=== PATIENT | male | born 1970 | race Caucasian/White ===

== ENCOUNTER 2020-03-06 16:31 | Emergency (ER) | payer OTHER, SELFPAY ==
--- NOTE | ~2020-03-06 | CT_ITS ---
EXAMINATION: CTA brain carotid DATE: 03/06/2020 17:47 INDICATION: Gait instability. TECHNIQUE: Computed tomographic angiography (CTA) of the head was performed without and with 100 mL O mnipaque-350 intravenous contrast. CTA of the neck was performed with intravenous contrast. Automated exposure control and iterative reconstruction technique were employed. The dose-length product was 1 648.75 mGy-cm. Maximum intensity projection and volume rendered 3D-reconstructions were created by anju jansen technologist on a separate workstation. COMPARISON: None. FINDINGS: HEAD CTA: There is no intracranial hemorrhage, acute infarction, or abnormal intracranial mass lesion . The ventricles are normal in size. The orbits are normal. There is mucosal thickening in the parana ale sinuses. The mastoid air cells are normal. The vertebral arteries are codominant. There is no sig nificant stenosis of basilar artery or the posterior cerebral arteries. There is no significant steno sis of the intracranial internal carotid arteries or anterior or middle cerebral arteries. Anterior c ommunicating artery and the posterior communicating arteries are normal. There is no aneurysm. NECK CTA: There are no pathologically enlarged lymph nodes. There is no significant stenosis of the v ertebral arteries. There is mild plaque in the proximal internal carotid arteries. There is 0% steno sis of the proximal right internal carotid artery relative to normal distal artery lumen diameter (NA SCET criteria). There is 0% stenosis of the proximal left internal carotid artery relative to normal distal artery lumen diameter. There is severe spondylosis at C5-C6. IMPRESSION: 1. Normal brain. No aneurysm or significant intracranial arterial stenosis. 2. 0% stenosis of the proximal internal carotid arteries relative to normal distal artery lumen diame ters (NASCET criteria). Reviewed, dictated and finalized at location A. IMPRESSION: 1. Normal brain. No aneurysm or significant intracranial arterial stenosis. 2. 0% stenosis of the proximal internal carotid arteries relative to normal dis jorge artery lumen diameters (NASCET criteria).
[2020-03-06 16:35] VITALS: BP 153/85; PULSE 76; RESP 18; TEMP 36.6; O2SAT 100
[2020-03-06 16:43] VITALS: PULSE 83
--- NOTE | 2020-03-06 16:47 | ECG_ITS ---
Measurements Intervals [place] Rate: 62 P: 65 HI: 137 QRS: 49 QRSD: 94 T: 40 QT: 362 QTc: 370 Interpretive Statements SINUS RHYTHM BASELINE ARTIFACT- I, II, III, AVR, AVL, AVF NORMAL ECG Electronically Signed On 03-06-2020 17:17:02 CDT by Marcel Hunter D.O.
--- NOTE | 2020-03-06 16:48 | ED.GENADULT ---
HPI - General Adult General Chief complaint: Unspecified Stated complaint: unsteady on feet Time Seen by Provider: 03/06/20 16:39 History of Present Illness HPI narrative: Patient is a 49 y/o male complaining of mild unsteadiness, troubling finishing sentences for about 1 week. He states that he is able to move all 4 extremities and able to walk. There is no known alleviating or exacerbating factor. Of note, he states the he had C5 fracture approximately 12 weeks from horse riding accident. He was treated at [facility] conservatively with neck brace. He has no neck pain at this time. Related Data Home Medications Medication Instructions Recorded Confirmed baclofen 10 mg PO QID 03/06/20 ergocalciferol (vitamin D2) 1,250 mcg PO WEEKLY 03/06/20 [Vitamin D2] gabapentin 800 mg PO TID 03/06/20 meloxicam 15 mg PO DAILY 03/06/20 Allergies Allergy/AdvReac Type Severity Reaction Status Date / Time No Known Allergies Allergy Unverified 03/06/20 16:38 Review of Systems Constitutional: Constitutional: Denies chills, Denies fever(s), Denies headache(s) and Denies weakness Eyes: Eyes: Denies blurry vision ENT: Denies headache(s) and Denies neck pain Cardiovascular: Cardiovascular: Denies chest pain and Denies dyspnea Respiratory: Respiratory: Denies cough and Denies dyspnea Gastrointestinal: Gastrointestinal: Denies abdominal pain, Denies diarrhea, Denies nausea and Denies vomiting Genitourinary: Genitourinary: Denies hematuria and Denies dysuria Musculoskeletal: Musculoskeletal: Denies back pain and Denies neck pain Neurologic: Reports as per HPI, Reports dizziness, Denies headache(s) and Denies weakness Comments: gait instability Exam Const: General: no acute distress and well developed Orientation/consciousness: oriented to person, oriented to place, oriented to time and patient oriented x3 HENMT: Head: normocephalic Ears: external ears normal General nose exam: Normal external nose present Eyes: General: appearance normal, both eyes and all related structures Conjunctivae: conjunctivae normal Neck: Neck: normal visual inspection and full ROM Chest: Chest palpation & inspection: normal inspection of the chest and no tenderness Resp: Effort & Inspection: normal respiratory effort Auscultation: clear to auscultation bilaterally Cardio: Rate: regular rate Rhythm: regular rhythm GI: GI Palp: No abdominal tenderness and Yes Soft to palpation Skin: General skin exam: normal color and turgor normal Neuro: General: oriented to person, oriented to place, oriented to time and patient oriented x3 Cranial nerves: Yes CN's II-XII intact bilaterally Cognition (Neuro): normal cognition Speech: normal speech Motor exam (neuro): 5/5 motor strength present throughout Sensory Exam: normal sensation Coordination: [id number] test normal and [id number] test normal Extrem: General: normal to inspection, full ROM and no pedal edema Psych: Appearance: grossly normal Mental Status: mental status grossly normal Affect: normal affect Course Reevaluation(s) Reevaluation #1: Rechecked patient. I advised patient to be admitted for observation and further evaluation for possible TIA/stroke. Patient refused and insists that he wants to be discharged and he will follow up with PCP for further outpatient work up. Date: 03/06/20 Time: 18:30 Vital Signs Vital signs: Vital Signs Temperature 36.6 C 03/06/20 16:35 Pulse Rate 76 03/06/20 16:35 Respiratory Rate 18 03/06/20 16:35 Blood Pressure 153/85 H 03/06/20 16:35 Pulse Oximetry 100 03/06/20 16:35 Temperature 36.6 C 03/06/20 16:35 Pulse Rate 62 03/06/20 18:47 Respiratory Rate 21 H 03/06/20 18:47 Blood Pressure 135/89 03/06/20 18:47 Pulse Oximetry 99 03/06/20 18:47 Medical Decision Making Vital Signs Vital Signs: Vital Signs Temperature 36.6 C 03/06/20 16:35 Pulse Rate 76 03/06/20 16:35 Respiratory Rate 18 03/06/20 16:3
[2020-03-06 17:02] LABS: Basophils Absolute Auto 0.1 K/mm3 (0.0-0.1); Basophils Percent Auto 0.7 % (0.2-1.2); Eosinophils Absolute Auto 0.1 K/mm3 (0-0.3); Eosinophils Percent Auto 0.9 % (0-4.4); Hematocrit 44.1 % (42.0-52.0); Hemoglobin 14.5 g/dL (14.0-18.0); Immature Granulocyte Absolute 0.04 K/mm3 (0.00-0.031); Immature Granulocyte Percent A 0.3 % (0-0.5); Lymphocytes Absolute Auto 2.32 K/mm3 (0.9-3.2); Lymphocytes Percent Auto 19.2 % (18.3-44.2); Mean Corpuscular HGB Conc 32.9 g/dl (32-36); Mean Corpuscular Hemoglobin 29.5 pg (26-34); Mean Corpuscular Volume 89.6 fl (80-100); Mean Platelet Volume 11.2 fl (7.4-10.4); Monocytes Absolute Auto 0.9 K/mm3 (0.1-0.6); Monocytes Percent Auto 7.5 % (2.6-8.5); Neutrophils Absolute Auto 8.6 K/mm3 (1.3-6.7); Neutrophils Percent Auto 71.4 % (45.5-73.1); Platelet Count Result 368 k/mm3 (150-375); Red Blood Count 4.92 M/mm3 (4.6-6.20); Red Cell Distribution Width 13.1 % (11.5-14.5); White Blood Count 12.1 K/mm3 (4.5-10.0)
[2020-03-06 17:14] LABS: Add Urine Microscopic? NO; Appearance Urine Clear (Clear); Bilirubin Urine Negative (Negative); Blood Urine Negative (Negative); Color Urine Yellow (Yellow); Glucose Urine UA Negative (Negative); Ketones Urine Negative (Negative); Leukocyte Esterase Ur Negative LEU/UL (Negative); Nitrate Urine Negative (Negative); Protein Urine Negative (Negative); Specific Grav Ur 1.023 (1.001-1.035); Urobilinogen Urine Negative mg/dL (<2.0)
[2020-03-06 17:16] LABS: Alanine Aminotransferase 28 U/L (4-50); Albumin Level 4.5 g/dL (3.5-5.1); Alkaline Phosphatase 60 U/L (38-126); Aspartate Amino Transferase 25 U/L (17-59); Bilirubin,Total 0.4 mg/dL (0.2-1.3); Blood Urea Nitrogen 16 mg/dL (9-20); Calcium 9.4 mg/dL (8.4-10.2); Carbon Dioxide 26 mmol/L (22-30); Chloride 106 mmol/L (98-107); Estimated CRCL calculation 70 ml/min; Estimated Glomerular Filt Rate > 60; Glucose 126 mg/dL (75-110); Potassium 3.9 mmol/L (3.4-5.0); Sodium 140 mmol/L (137-145)
[2020-03-06 17:33] LABS: Amphetamine Screen Urine Negative (Negative); Barbiturate Screen Urine Negative (Negative); Benzodiazepines Screen Urine Negative (Negative); Cannabinoid Screen Urine Positive (Negative); Cocaine Screen Urine Negative (Negative); Methadone Screen Urine Negative (Negative); Opiate Screen Urine Negative (Negative); Phencyclidine Screen Urine Negative (Negative)
[2020-03-06 18:01] VITALS: BP 127/82; PULSE 58; RESP 17; O2SAT 99
[2020-03-06 18:47] VITALS: BP 135/89; PULSE 62; RESP 21; O2SAT 99
== END 2020-03-06 18:48 | disposition home or self-care (01) ==
PROVIDERS: Emergency Provider Emergency Medicine; PCP Family Medicine
DX: R26.81 Unsteadiness on feet (principal); G47.00 Insomnia, unspecified
CPT/HCPCS: 36415; 70496; 70498; 80053; 80307; 81003; 85025; 93005; 99284; Q9967